=== PATIENT | female | born 1965 | race Caucasian/White ===

== ENCOUNTER → 2016-03-25 | Outpatient (CLI) | payer OTHER ==
--- NOTE | 2016-03-25 09:21 | MA ---
Diagnostic Digital Left Mammogram with tomosynthesis and CAD History: Palpable lump beneath the outer left areola. Comparison: June 2015, [facility] 2014 and October 2012. Technique: A true-lateral digital view with a marker placed over the lump. A CC digital spot film wit h a marker placed over the lump. Oblique lateral tomosynthesis acquisition. Digital images are review ed with iCAD.>] Breast Density: D Findings: No obvious abnormality is identified underlying the extremely dense breast parenchyma in th e region of the patient's palpable lump. No microcalcifications or architectural distortion is identi fied. A small mass could easily be obscured. Impression: Negative mammographic imaging in a patient with extremely dense parenchyma. Recommendation: Further imaging with ultrasound, which we will perform shortly. BI-RADS 0: Needs additional imaging evaluation, periareolar left breast
--- NOTE | 2016-03-25 10:51 | US ---
Left Breast Ultrasound History: Left periareolar breast Technique: I first performed a directed physical examination. This was followed by ultrasound exam with a high frequency linear transducer. Findings: On physical examination there is an easily palpable pea-sized firm slightly mobile nodule a t the 2:00 retroareolar position. On ultrasound the larger of 2 adjacent solid nodules represents the palpable nodule. The larger nodule measures 10 x 6 mm and the smaller nodules 6 x 4 mm. Both nodules are associated with internal vascularity. The nodules are smoothly marginated and slightly wider gustavo n they are tall. 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 Recommend ultrasound directed vacuum a ssisted core biopsy for histologic analysis. If the patient prefers, surgical excision could be perfo rmed. Results and recommendations were discussed with the patient in detail, which included surgical excisi on versus ultrasound needle biopsy. She was given information about scheduling the ultrasound directe d vacuum assisted core biopsy and instructed to call Dr. García or me if she has additional questions . Recommendations were also discussed with Dr. García at 10:47 am.
== END ==
LOC: FIMAGING 08:40
PROVIDERS: ATTEND Internal Medicine
DX: N63 Unspecified lump in breast (principal)
CPT/HCPCS: G0206

== ENCOUNTER → 2016-04-02 | Outpatient (CLI) | payer OTHER ==
[~2016-04-02] MED LIST: THROMBIN (RECOMBINANT) 5,000 UNIT VIAL TP ONE
--- NOTE | 2016-04-02 15:10 | MA ---
Diagnostic digital mammogram left breast. History: Ultrasound guided breast core biopsy procedure. Check for clip position. Findings: CC and 90 degrees lateral view of the left breast was obtained. The Suros clip is in good position within the upper outer periareolar position of the left breast wit hout evidence of clip migration. No significant hematoma is seen. Impression: Good position of the clip left breast following ultrasound-guided needle core biopsy.
--- NOTE | 2016-04-02 16:07 | US ---
Vacuum-Assisted Core Biopsy left Breast History: Indeterminate solid nodule 2:00 periareolar location left breast. Crosscutting Measure #226 : Current tobacco user no. Technique: Following informed consent, the mass within the 2:00 periareolar position of the left b reast was localized. The skin was then prepped and draped in sterile fashion. Following local anesthe maikel with 1% lidocaine, lidocaine mixed with epinephrine was injected deeper within the breast tissue. With ultrasound guidance, Marcaine was then injected around the nodule. A small skin sydney was placed on the skin surface through which the 9-gauge Suros vacuum-assisted core biopsy needle was advanced with ultrasound guidance to the deep margin of the mass. Numerous core biopsy samples were obtained t hrough the mass. A Suros titanium clip was then placed in the biopsy bed. A small amount of residual mass remains by the end of the biopsy. Impression: Successful ultrasound-guided core biopsy of mass left breast 2:00 periareolar position. Successful deployment of Suros titanium clip positioned immediately adjacent to the biopsy site.
== END ==
LOC: FIMAGING 08:39
PROVIDERS: ATTEND Internal Medicine
PROC: 0HBU3ZX Excision of Left Breast, Percutaneous Approach, Diagnostic (ICD-10-PCS; principal; 2016-04-02)
DX: D24.2 Benign neoplasm of left breast (principal)
CPT/HCPCS: G0206

== ENCOUNTER → 2017-07-20 | Outpatient (CLI) | payer OTHER | LOC: FIMAGING 15:52 | PROVIDERS: ATTEND Internal Medicine | DX: Z12.31 Encounter for screening mammogram for malignant neoplasm of breast (principal) ==

== ENCOUNTER → 2018-02-23 | Outpatient (CLI) | payer OTHER | LOC: FIMAGING 12:29 | PROVIDERS: ATTEND Internal Medicine | DX: Z13.820 Encounter for screening for osteoporosis (principal) ==

== ENCOUNTER → 2018-07-22 | Outpatient (CLI) | payer OTHER | LOC: FIMAGING 15:55 | PROVIDERS: ATTEND Internal Medicine | DX: Z12.31 Encounter for screening mammogram for malignant neoplasm of breast (principal) ==